=== PATIENT | female | born 1985 | race Caucasian/White ===

== ENCOUNTER 2024-06-21 14:10 | Emergency (ER) | payer BC ==
--- NOTE | 2024-06-21 15:52 | RAD REPORT ---
EXAM: CT Head Brain Wo Cont HISTORY: headache, cancer COMPARISON: None TECHNIQUE: Multiple contiguous axial images were obtained for a CT of the brain without contrast. Sag ittal and coronal reformats were performed. One or more of the following dose reduction techniques were used: Automated exposure control, adjus tment of the mA and kV according to patient size, and iterative reconstruction. Unless otherwise specified, incidental findings do not require dedicated imaging follow-up. FINDINGS: No evidence of hydrocephalus, intracranial hemorrhage, or extra-axial fluid collection. The brain is normal in morphology. The calvarium is intact. The visualized paranasal sinuses and mastoid air cells are essentially clear . IMPRESSION: No evidence of acute intracranial abnormality.
[2024-06-21] MEDS ORDERED: MORPHINE 4 MG/ML SYR ONE (15:56)
[2024-06-21] MEDS ORDERED: ONDANSETRON 4 MG/2 ML VIAL ONE (15:56)
--- NOTE | 2024-06-21 15:57 | RAD REPORT ---
EXAMINATION: CT PELVIS WITHOUT CONTRAST CLINICAL INDICATION: Female, 39 years old.[facility] right hip/pelvic pain, hx of ovarian cancer Bed Name: [id number] TECHNIQUE: CT pelvis was performed, without IV contrast, as per department protocol. Axial, sagittal and coronal reconstructions were obtained. One or more of the following dose reduction techniques were used: Automated exposure control, adjustment of the mA and/or kV according to patient size, and/ or iterative reconstruction. Unless otherwise specified, incidental findings do not require dedicated imaging follow-up. COMPARISON: No prior exam. FINDINGS: The lack of intravenous contrast limits the sensitivity of this exam for evaluation of solid visceral organs, vascular structures, and retroperitoneum. MUSCULOSKELETAL: No acute or suspicious osseous abnormality. Degenerative changes at L5-S1, with disc height loss, and suspected moderate degrees of central canal stenosis and bilateral neural foraminal narrowing. URINARY SYSTEM: No abnormalities of the included kidneys and ureters. Urinary bladder is unremarkable . GASTROINTESTINAL TRACT: Included small bowel is normal in caliber. No wall thickening or bowel inflam matory changes. LYMPH NODES: No lymphadenopathy. ABDOMINAL AORTA AND OTHER VESSELS: Normal caliber aorta and IVC. ADDITIONAL FINDINGS: Status post hysterectomy. IMPRESSION: No acute abnormalities of the bony pelvis. Evaluation limited by lack of IV contrast. Spondylotic changes at L5-S1 as above.
[2024-06-21 16:06] LABS: Absolute Lymphocytes (CBC) 1.5 K/uL (0.7-4.9); Absolute Monocytes 0.3 K/uL (0.1-1.3); Absolute Neutrophil 3.2 K/uL (1.8-8.0); Basophils % 0.5 % (0-1.3); Eosinophils % 0.5 % (0-4.4); Hematocrit 26.4 % (36.0-45.0); Hemoglobin 9.2 g/dL (12.0-15.0); Lymphocytes % 30.3 % (15.3-44.8); MCH 38.3 pg (27.0-35.0); MCHC 34.7 g/dL (32.0-36.0); MCV 110.3 fL (80-100); MPV 7.7 fL (7.6-11.3); Monocytes % 5.4 % (3.3-12.3); Neutrophils % 63.3 % (41.7-73.7); Nucleated Red Blood Cells % 0.2 % (0-0); Platelets 130 thou/uL (152-406); RBC Red Blood Cell Count 2.39 M/uL (3.86-4.86); Red Cell Distribution Width 20.1 % (12.1-15.2)
--- NOTE | 2024-06-21 16:17 | EDPHYS ---
Physician Documentation [facility] Name: Rj Milligan Age: 39 yrs Sex: Female : 1985 Arrival Date: 06/21/2024 Time: 14:10 Bed 5 Private MD: ED Physician Huey Tristan HPI: 06/21 15:16 This 39 yrs old Female presents to ER via Ambulatory with complaints of right rn hip/pelvic pain, headache, tingling of hands. 15:16 The patient presents with pain that is acute. The symptoms are located in the right rn pelvic/hip pain. The pain does not radiate. Onset: The symptoms/episode began/occurred at an unknown time. Modifying factors: The patient symptoms are alleviated by nothing, the patient symptoms are aggravated by any movement. Severity of symptoms: At their worst the symptoms were moderate, in the emergency department the symptoms are unchanged. The patient has not experienced similar symptoms in the past. Patient reports that she is having right pelvic/hip pain, unknown onset, evaluated [facility] yesterday and states no answer was given. She showed me all of the blood tests which were grossly negative except for expected anemia and low platelet level after her last chemotherapy treatment. Denies injury. No history of DVT or PE. No leg injury or swelling. Reports numbness and tingling to bilateral hands which [facility] told was due to chemotherapy and neuropathy.. 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 - Infectious Disease History:: Denies. - Social history:: Smoking status: Patient/guardian denies using tobacco, but has a distant history of tobacco abuse. - Family history:: not pertinent. - Hospitalizations: : No recent hospitalization is reported. ROS: 15:16 Constitutional: Negative for fever, chills, and weight loss, Cardiovascular: Negative rn for chest pain, palpitations, and edema, Respiratory: Negative for cough, wheezing, and pleuritic chest pain, Abdomen/GI: + right pelvic pain MS/Extremity: Negative for injury and deformity, Skin: Negative for injury, rash, and discoloration, Neuro: + headache, negative for focal weakness Exam: 15:16 Constitutional: This is a well developed, well nourished patient who is awake, alert, rn and in no acute distress. Head/Face: Normocephalic, atraumatic. Cardiovascular: Tachycardic, regular. Respiratory: No increased work of breathing, no retractions or nasal flaring. Abdomen/GI: Soft, non-tender MS/ Extremity: Pulses equal, no cyanosis. Neurovascular intact. Full, normal range of motion. Equal circumference. Neuro: Awake and alert, GCS 15, oriented to person, place, time, and situation. Cranial nerves II-XII grossly intact. Motor strength 5/5 in all extremities. Sensory grossly intact. Cerebellar exam normal. Normal gait. Vital Signs: 14:19 BP 125 / 91; Pulse 101; Resp 18; Temp 97; Pulse Ox 99% ; ko1 16:30 BP 124 / 92; Pulse 92; Resp 18; Pulse Ox 99% on R/A; ph 17:20 BP 118 / 89; Pulse 89; Resp 18; Temp 97.9; Pulse Ox 98% on R/A; ph MDM: 14:26 Medical Screening Exam initiated rn 16:15 Differential diagnosis: strain, sciatica, Musculoskeletal pain, radiculopathy, radiated rn back pain. Data reviewed: vital signs, nurses notes, lab test result(s), radiologic studies, CT scan, and as a result, I will discharge patient. Counseling: I had a detailed discussion with the patient and/or guardian regarding the historical points, exam findings, and any diagnostic results supporting the discharge/admit diagnosis, lab results, radiology results, the need for outpatient follow up, to return to the emergency department if symptoms worsen or persist or if there are any questions or concerns that arise at home. Special discussion: I discussed with the patient/guardian in detail that at this point there is no indication for admission to the hospital. It is understood, however, that if the symptoms persist or worsen the patient needs to return immediately for re-evaluation. ED course: I have personally reviewed all of the results, including but not limited to blood tests and imaging deemed necessary to safely discharge this patient at this time. All results given to and printed out for patient. I personally went over all the results with the patient and answered all questions. Patient will follow-up with PCP and or specialist as discussed. Return precautions given and understood.. 06/21 14:48 Order name: CBC with Diff rn 06/21 14:48 Order name: Basic Metabolic Panel; Complete Time: 16:18 rn 06/21 14:48 Order name: CT Head Brain wo Cont; Complete Time: 15:58 rn 06/21 14:48 Order name: CT Pelvis wo Cont; Complete Time: 15:58 rn 06/21 14:48 Order name: IV Start; Complete Time: 16:02 rn Administered Medications: 16:01 Drug: Ondansetron IVP 4 mg IVP once; over 2 minutes Route: IVP; Site: left antecubital; ph 17:22 Follow up: Response: No adverse reaction ph 16:02 Drug: morphine IVP or IV 4 mg IVP once over 4 mins Route: IVP; Infused Over: 4 mins; ph Site: left antecubital; 17:21 Follow up: Response: No adverse reaction; Pain is decreased ph Disposition Summary: 06/21/24 16:16 Discharge Ordered Notes: Location: Home rn Problem: an ongoing problem rn Symptoms: have improved rn Condition: Stable rn Diagnosis - Low back pain rn - Pelvic and perineal pain rn Followup: rn - With: Private Physician - When: As needed - Reason: Recheck today's complaints, Re-evaluation by your physician Discharge Instructions: - Discharge Summary Sheet rn - Lumbosacral Radiculopathy rn - Musculoskeletal Pain rn - Pelvic Pain, Female rn Forms: - Medication Reconciliation Form rn - Antibiotic regulatory internship - Prescription Opioid Use rn - Patient Portal Instructions rn - Leadership Thank You Letter rn Prescriptions: - acetaminophen-codeine 300-30 mg Oral tablet - take 1 tablet ORAL route every 4 to 6 hours As needed as needed for pain; 20 rn tablet; Refills: 0, Product Selection Permitted Signatures: Dispatcher [employer] EDMS Huey Tristan MD MD rn Hall, Patricia, RN RN Justine Sue RN RN ko1 Corrections: (The following items were deleted from the chart) 14:49 14:49 Head Brain Wo Cont+CT.RAD.BRZ ordered. EDMS EDMS 14:49 14:49 Pelvis Wo Cont+CT.RAD.BRZ ordered. EDMS EDMS 14:49 14:49 CBC+H.LAB.BRZ ordered. EDMS EDMS 14:49 14:49 BASIC METABOLIC PANEL+C.LAB.BRZ ordered. EDMS EDMS
--- NOTE | 2024-06-21 16:17 | ER ---
Nurse's Notes [facility] Name: Rj Milligan Age: 39 yrs Sex: Female : 1985 Arrival Date: 06/21/2024 Time: 14:10 Bed 5 Private MD: Diagnosis: Low back pain;Pelvic and perineal pain Presentation: 06/21 14:19 Chief complaint: Patient states: its been going on for days, went to [facility] ko1 yesterday was checked out and they did not find anything. Last chemo was May 29, ovarian--had total hysterectomy. Coronavirus screen: At this time, the client does not indicate any symptoms associated with coronavirus-19. Ebola Screen: No symptoms or risks identified at this time. Initial Sepsis Screen: Does the patient meet any 2 criteria? No. Patient's initial sepsis screen is negative. Does the patient have a suspected source of infection? No. Patient's initial sepsis screen is negative. Risk Assessment: Do you want to hurt yourself or someone else? Patient reports no desire to harm self or others. Onset of symptoms is unknown. 14:19 Method Of Arrival: Ambulatory ko1 14:19 Acuity: GILBERTO 3 ko1 Triage Assessment: 14:24 General: Appears in no apparent distress. Behavior is calm, cooperative, appropriate ko1 for age. Pain: Complains of pain in chest. Cardiovascular: Reports chest pain. 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 - Infectious Disease History:: Denies. - Social history:: Smoking status: Patient/guardian denies using tobacco, but has a distant history of tobacco abuse. - Family history:: not pertinent. - Hospitalizations: : No recent hospitalization is reported. Screenin:04 [facility] ED Fall Risk Assessment (Adult) History of falling in the last 3 months, ph including since admission No falls in past 3 months (0 pts) Confusion or Disorientation No (0 pts) Intoxicated or Sedated No (0 pts) Impaired Gait No (0 pts) Mobility Assist Device Used No (0 pt) Altered Elimination No (0 pt) Score/Fall Risk Level 0 - 2 = Low Risk Oriented to surroundings, Maintained a safe environment, Hourly rounding (assess needs \T\ fall precautionary measures) done. Abuse screen: Denies threats or abuse. Denies injuries from another. Nutritional screening: No deficits noted. Tuberculosis screening: No symptoms or risk factors identified. Assessment: 16:06 General: Appears in no apparent distress. comfortable, Behavior is calm, cooperative, ph appropriate for age. Pain: Complains of pain in right hip and chest. Neuro: Level of Consciousness is awake, alert, obeys commands, Oriented to person, place, time, situation. Cardiovascular: Capillary refill < 3 seconds in bilateral fingers Patient's skin is warm and dry. Respiratory: Airway is patent Respiratory effort is even, unlabored. Derm: Skin is pink, warm \T\ dry. Musculoskeletal: Circulation, motion, and sensation intact. Range of motion: intact in all extremities. Vital Signs: 14:19 BP 125 / 91; Pulse 101; Resp 18; Temp 97; Pulse Ox 99% ; ko1 16:30 BP 124 / 92; Pulse 92; Resp 18; Pulse Ox 99% on R/A; ph 17:20 BP 118 / 89; Pulse 89; Resp 18; Temp 97.9; Pulse Ox 98% on R/A; ph ED Course: 14:12 Patient arrived in ED. im 14:24 Triage completed. ko1 14:24 Arm band placed on right wrist. Patient placed in waiting room, Patient notified of ko1 wait time. 14:26 Huey Tristan MD is Attending Physician. rn 15:05 CT Head Brain wo Cont In Process Unspecified. EDMS 15:05 CT Pelvis wo Cont In Process Unspecified. EDMS 15:45 Patience Izaguirre, SAILAJA is Primary Nurse. ph 16:02 CBC with Diff Sent. ph 16:02 Basic Metabolic Panel Sent. ph 16:03 Initial lab(s) drawn, by me, sent to lab. Inserted saline lock: 22 gauge in left ph antecubital area, using aseptic technique. Blood collected. Flushed with 10 mL NS. Patient maintains SpO2 saturation greater than 95% on room air. 16:04 Patient has correct armband on for positive identification. Placed in gown. Bed in low ph position. Call light in reach. Pulse ox on. NIBP on. Door closed. Noise minimized. Warm blanket given. Pillow given. 17:21 No provider procedures requiring assistance completed. IV discontinued, intact, ph bleeding controlled, No redness/swelling at site. Pressure dressing applied. Administered Medications: 16:01 Drug: Ondansetron IVP 4 mg IVP once; over 2 minutes Route: IVP; Site: left antecubital; ph 17:22 Follow up: Response: No adverse reaction ph 16:02 Drug: morphine IVP or IV 4 mg IVP once over 4 mins Route: IVP; Infused Over: 4 mins; ph Site: left antecubital; 17:21 Follow up: Response: No adverse reaction; Pain is decreased ph Medication: 16:04 VIS not applicable for this client. ph Outcome: 16:16 Discharge ordered by . rn 17:21 Discharged to home ambulatory, with family, ph 17:21 Condition: good 17:21 Discharge instructions given to patient, Instructed on discharge instructions, follow up and referral plans. medication usage, Demonstrated understanding of instructions, follow-up care, medications, Prescriptions given X 1, 17:22 Patient left the ED. ph Signatures: Dispatcher [employer] EDMS Huey Tristan MD MD rn Hall, Patricia, RN RN ph Justine Hyatt RN RN ko1 Nancy Pope
[2024-06-21 16:18] LABS: Anion Gap 5.6 mEq/L (5.0-15.0); Potassium 3.6 mEq/L (3.5-5.1)
[2024-06-21 19:12] LABS: Anisocytosis 1+; Blood Morphology Comment NOTED (NOT SEEN); Platelet Estimate DECR; Poikilocytosis 1+; White Blood Cell Scan OK (OK)
[2024-06-21 23:14] VITALS: BP 118/89; TEMP 97.9; O2SAT 98
== END 2024-06-21 17:22 | disposition home or self-care (01) ==
LOC: ER 14:10
DX: M54.50 Low back pain, unspecified (principal); R10.2 Pelvic and perineal pain
CPT/HCPCS: 85025; 80048; 36415; 70450; 72192; 96375; 96374; 99284; J2405